=== PATIENT | male | born 1985 | race Caucasian/White ===

== ENCOUNTER → 2018-06-30 | Outpatient (CLI) | payer OTHER ==
--- NOTE | 2018-07-01 09:22 | US ---
EXAM DESCRIPTION: Breast,Bilateral: Ultrasound CLINICAL HISTORY: 30 [id number]. Mass behind the right nipple with tenderness. Recent onset. No history of trauma. No history of starting new medication. No prior problems with breasts. COMPARISON: Digital diagnostic tomosynthesis bilateral breast on this visit. TECHNIQUE: Transcutaneous scanning of the bilateral breasts utilizing cummings-scale and Doppler modes. Scanning performed by the paperhanger supervisor and Dr. Jerez. FINDINGS: Minimal amount of breast tissue visualized retroareolar breast bilaterally. Mostly fatty echotexture except as noted. Increased hypoechoic soft tissue in the retroareolar right breast. No definite mass. Increased vascularity. No distinct cyst. No large calcifications. No overlying skin changes. Probable inflammatory tissue or gynecomastia. IMPRESSION: 1. Bi-Rads Category 3: Probably Benign Findings. 2. Please refer to bilateral digital tomosynthesis diagnostic mammographic examination and report on this visit. The FINDINGS and the FOLLOW-UP plan were reviewed in person with the patient after the examination. Written communication explaining the IMPRESSION and FOLLOW-UP will be mailed to the patient and referring care provider. Electronically signed by: Cuco Jerez MD 07/01/2018 9:20 AM [facility]
--- NOTE | 2018-07-01 09:54 | MAM ---
EXAM DESCRIPTION: 3D Diagnostic, Bilateral: Digital Mammography CLINICAL HISTORY: 30 [id number] . Recent onset of tenderness and lump behind the right nipple.. COMPARISON: Targeted bilateral breast ultrasound included with this examination. No prior mammography. No prior reports available.. TECHNIQUE: Bilateral CC LM MLO projection full-field images, digital mammographic tomosynthesis technique. Bilateral 2-D digital full-field MLO images. CAD not utilized. FINDINGS: The breast parenchymal density pattern is: Scattered areas of fibroglandular density. No skin thickening or nipple retraction diffuse mass density or focal asymmetry in the retroareolar right breast. No abnormal calcifications. No skin thickening or nipple retraction. Bilateral axillary lymph nodes. Ultrasound: Minimal amount of breast tissue visualized retroareolar breast bilaterally. Mostly fatty echotexture except as noted. Increased hypoechoic soft tissue in the retroareolar right breast. No definite mass. Increased vascularity. No distinct cyst. No large calcifications. No overlying skin changes. Probable inflammatory tissue or gynecomastia. IMPRESSION: BI-RADS CATEGORY: 3 - PROBABLY BENIGN. Management: Short interval (6-month) follow-up targeted right breast ultrasound and continued surveillance diagnostic digital mammography, right breast. The FINDINGS and the FOLLOW-UP plan were reviewed in person with the patient after the examination. Written communication explaining the IMPRESSION and FOLLOW-UP will be mailed to the patient and referring care provider. Electronically signed by: Cuco Jerez MD 07/01/2018 9:52 AM CERTIFIED ADAPTIVE PHYSICAL EDUCATOR
== END ==
LOC: US 13:02
PROVIDERS: ATTEND Family Medicine
DX: N63.10 Unspecified lump in the right breast, unspecified quadrant (principal)
CPT/HCPCS: 76641; 77066; G0279

== ENCOUNTER 2019-04-22 05:58 | Emergency (ER) | payer OTHER ==
--- NOTE | 2019-04-22 06:17 | ED.PDOC ---
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 Has 3/10 left sided FORBES. Denies LOC, nausea, vomiting or vision changes. Does not take blood thinners or any medications regularly. Here for Worker's Comp eval. Allergies/Adverse Reactions: Allergies NO KNOWN ALLERGY Allergy (Unverified 06/01/13 14:50) Review of Systems - Review of Systems Constitutional: States: no symptoms reported EENTM: Denies: eye pain, blurred vision, ear pain, nose congestion, throat pain Respiratory: States: no symptoms reported Cardiology: States: no symptoms reported Gastrointestinal/Abdominal: States: no symptoms reported Musculoskeletal: States: no symptoms reported Neurological: States: headache. Denies: paresthesia, seizure All other Systems: Reviewed and Negative Physical Exam - Physical Exam General Appearance: Alert, Comfortable, No apparent distress, Well Developed Ears, Nose, Throat: other - PERRL, EOMI. No facial edema, erythema or tenderness Neck: non-tender, full range of motion, supple, other - No C, T, L spine tenderness Respiratory: chest non-tender, lungs clear, normal breath sounds, no respiratory distress Cardiovascular/Chest: regular rate, rhythm, no edema Gastrointestinal/Abdominal: non tender, soft Back Exam: normal inspection, no vertebral tenderness Extremity: normal range of motion, non-tender, normal inspection Neurologic: plan rep II-XII nml as tested, no motor/sensory deficits, alert, normal mood/affect, oriented x 3 Skin Exam: normal color Progress - Progress Progress: 04/22/19 06:19 Pt was hit in left side of head by case of beer. No LOC. No deficits on neuro exam at this time. CHI precautions given. Will take Tyl/Motrin as needed for pain and f/u with PCP or worker's comp physician in 1-2 days for recheck. Departure - Departure Clinical Impression: Head injury Qualifiers: Encounter type: initial encounter Qualified Code(s): S09.90XA - Unspecified injury of head, initial encounter Concussion Qualifiers: Encounter type: initial encounter Loss of consciousness presence/duration: without LOC Qualified Code(s): S06.0X0A - Concussion without loss of consciousness, initial encounter Time of Disposition: 06:26 Disposition: Discharge to Home or Self Care Condition: Good Departure Forms: ED Discharge - Pt. Copy, Patient Portal Self Enrollment Instructions: Closed Head Injury (DC) Diet: resume usual diet Activity: increase activity as tolerated Referrals: FER GREGORY MD [Primary Care Provider] - 1-2 Days
[2019-04-22 06:23] VITALS: TEMP 97; O2SAT 98
[2019-04-22 06:48] VITALS: BP 109/74
== END 2019-04-22 06:48 | disposition home or self-care (01) ==
LOC: ER 05:58
DX: S06.0X0A Concussion without loss of consciousness, initial encounter (principal); W20.8XXA Other cause of strike by thrown, projected or falling object, initial encounter; Y99.0 Civilian activity done for income or pay; Y92.69 Other specified industrial and construction area as the place of occurrence of the external cause

== ENCOUNTER → 2019-05-02 | Outpatient (CLI) | payer BC | LOC: GMAF 16:53 | PROVIDERS: ATTEND Nurse Practitioner Family | DX: Z20.2 Contact with and (suspected) exposure to infections with a predominantly sexual mode of transmission (principal) ==

== ENCOUNTER 2019-08-07 20:28 | Emergency (ER) | payer BC ==
[2019-08-07] MEDS ORDERED: SODIUM CHLORIDE 0.9% (FLUSH) 10 ML SYG IV PRN (20:34)
[2019-08-07] MEDS ORDERED: SODIUM CHLORIDE 0.9% 1000ML 1,000 ML IVS ONE ×2 (20:34→20:45)
--- NOTE | 2019-08-07 20:35 | ED.PDOC ---
History of Present Illness - General Time Seen by Provider: 08/07/19 20:34 Source: patient - History of Present Illness Initial Comments: 34 yo male who presents with cc of lightheadedness. 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 Reports he had just eaten some tacos then he stood up and was walking to the restroom when he suddenly felt lightheaded like he might pass out. He went outside and lied down and had nausea with 1 episode of NBNB emesis. Sx's seem to be improving with rest, slightly worse with activity. Now feeling much better but still slightly dizzy. Reports hx of similar sx's in the past but not as severe. Denies any chest pain, palpitations, dyspnea, abd pain, diarrhea, sore throat, fevers, chills. Had a concussion 2 months ago but denies any headaches, seems to have recovered from it. Also complains of rash to hands, feet, abdomen, and genital region. Onset 2-3 weeks ago. Was seen at that time in clinic and diagnosed with scabies and Rx'd Permethrin cream. Applied with resolution of rash but has now recurred. Allergies/Adverse Reactions: Allergies NO KNOWN ALLERGY Allergy (Verified 04/22/19 06:21) Home Medications: Ambulatory Orders RX: Permethrin [Elimite] 1 applic EX ONCE 1 Days #60 gm 08/07/19 Review of Systems - Review of Systems Review of Systems: 08/07/19 20:49 as per HPI All other Systems: Reviewed and Negative Past Medical History (General) - Patient Medical History Hx Stroke: No Hx of COPD: No Hx Cardiac Disorders: No Hx Congestive Heart Failure: Yes Hx Hypertension: No Hx Diabetes: No Hx Cancer: No - Vaccination History Hx Tetanus, Diphtheria Vaccination: No Hx Influenza Vaccination: No Hx Pneumococcal Vaccination: No - Social History Hx Tobacco Use: No Hx Alcohol Use: No Hx Substance Use: No Hx Substance Use Treatment: No Hx Depression: No - Female History Patient : No Family Medical History - Family History Mother Hx Family Diabetes: Yes Hx Family Cancer: Yes Physical Exam - Physical Exam General Appearance: Alert, No apparent distress Eye Exam: bilateral normal Ears, Nose, Throat: hearing grossly normal, normal ENT inspection, normal pharynx Neck: non-tender, full range of motion, supple, normal inspection Respiratory: chest non-tender, lungs clear, normal breath sounds, no respiratory distress, no accessory muscle use Cardiovascular/Chest: normal peripheral pulses, regular rate, rhythm, no edema, no gallop, no JVD, no murmur Peripheral Pulses: radial,right: 2+, radial,left: 2+ Gastrointestinal/Abdominal: non tender, soft, no organomegaly, no pulsatile mass Back Exam: normal inspection, no CVA tenderness Extremity: normal range of motion, non-tender, normal inspection, no pedal edema, no calf tenderness Neurologic: computer application developer II-XII nml as tested, no motor/sensory deficits, alert, normal mood/affect, oriented x 3 Skin Exam: normal color, warm/dry, rash - scattered fine erythematous papular lesions to hands, between digits, lower abdomen, and genital region - appears c/w scabies Progress - Progress Progress: 08/07/19 20:50 Near syncope -consider anxiety, vertigo, dehydration, electrolyte derangement, orthostatic, vasovagal. Consider also arrhythmia, other -obtain bloodwork, EKG, CXR, UA -place PIV, 1 L NS bolus, Zofran 4 mg IV Rash -appears c/w scabies. Discussed will need to treat the entire home and his pet cat. Will give another Rx of Permethrin cream as well. 08/08/19 22:50 -Labs reveal mild hypokalemia (replenished PO) but otherwise unremarkable. Pt has remained stable with no recurrence of sx's in ED. Feeling much better. -unsure of etiology of acute episode but does not appear emergent. Will dc home in good condition, advised close PCP f/u and return warnings discussed. Elmer Hill MD Billing #[id number] 08/07/19 20:34 IV Care:Saline Lock per Protoc QSHIFT Telemetry .ONCE EKG Assessment ONCE Pulse Oximetry Assessment DAILY 08/07/19 20:45 EKG STAT Laboratory Results - last 24 hr 08/07/19 08/07/19 08/07/19 20:47 20:47 20:47 WBC 5.2 RBC 4.80 Hgb 14.6 Hct 42.8 MCV 89.1 MCH 30.4 MCHC 34.1 RDW 12.9 Plt Count 195 MPV 8.0 Absolute Neuts (auto) 2.90 Absolute Lymphs (auto) 1.60 Absolute Monos (auto) 0.40 Absolute Eos (auto) 0.20 Absolute Basos (auto) 0.00 Neutrophils % 56.6 Lymphocytes % 31.2 Monocytes % 7.9 Eosinophils % 3.6 Basophils % 0.7 Sodium 143 Potassium 3.2 L Chloride 102 Carbon Dioxide 31 Anion Gap 13.2 BUN 14 Creatinine 0.89 BUN/Creatinine Ratio 15.7 POC Glucose 75 Random Glucose 87 Serum Osmolality 284.8 Calcium 9.3 Total Bilirubin 0.7 AST 28 ALT 20 Alkaline Phosphatase 71 Serum Total Protein 6.7 Albumin 3.9 Globulin 2.8 Albumin/Globulin Ratio 1.4 - EKG/XRAY/CT EKG: Sinus - NSR, HR 60, no ST elevations or q waves, axis & intervals normal, no prior EKGs for comparison XRAY: chest - no acute processes per my read Departure - Departure Clinical Impression: Near syncope, Scabies Time of Disposition: 22:22 Disposition: Discharge to Home or Self Care Condition: Good Departure Forms: ED Discharge - Pt. Copy, Patient Portal Self Enrollment Instructions: Scabies (DC), Near Fainting (DC) Diet: resume usual diet Referrals: FER GREGORY MD [Primary Care Provider] - 1-2 Weeks Prescriptions: RX: Permethrin [Elimite] 1 applic EX ONCE 1 Days #60 gm Home Medications: Ambulatory Orders RX: Permethrin [Elimite] 1 applic EX ONCE 1 Days #60 gm 08/07/19 Additional Instructions: Thoroughly massage cream (30 g for average adult) from head to soles of feet; leave on for 8 to 14 hours before removing (shower or bath). Return if concerning symptoms develop such as chest pain, shortness of breath, loss of consciousness, etc... Follow up closely with your PCP.
[2019-08-07] MEDS ORDERED: ONDANSETRON INJ 4 MG/2 ML VIAL IV ONE (20:45)
--- NOTE | 2019-08-07 21:19 | RAD ---
EXAM DESCRIPTION: Chest,1 View CLINICAL HISTORY: 34 years Male near-syncope COMPARISON: None TECHNIQUE: AP view of the chest was obtained. FINDINGS: Cardiac silhouette is prominent in size. Central vessels are not increased. No infiltrates or effusions seen. Prominent infrahilar vessels bilaterally. No consolidation. No pneumothorax. IMPRESSION: No active disease. Electronically signed by: Rose Barth MD 08/07/2019 9:17 PM CDT
[2019-08-07] MEDS ORDERED: POTASSIUM CHLORIDE 20 MEQ TAB PO ONE (22:22)
[2019-08-07 22:49] VITALS: BP 109/69; TEMP 98.2; O2SAT 98
== END 2019-08-07 22:48 | disposition home or self-care (01) ==
LOC: ER 20:28
DX: R55 Syncope and collapse (principal); B86 Scabies; I50.9 Heart failure, unspecified
CPT/HCPCS: 36415; 71045; 80053; 82948; 85025; 93005; J2405; J7030

== ENCOUNTER 2019-08-27 21:01 | Emergency (ER) | payer BC ==
--- NOTE | 2019-08-27 21:08 | ED.PDOC ---
History of Present Illness - General Chief Complaint: Lower Extremity Injury Time Seen by Provider: 08/27/19 21:07 Source: patient - History of Present Illness Initial Comments: 34 yo male who presents from work with cc of left lower leg pain following injury just [place]. 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 Reports hearing a cracking sound and immediate sharp/throbbing pain to the area - now constant, 9/10 severity, radiates to behind the knee, worse with palpation/WB/walking, nothing taken for relief. Unable to WB or walk due to pain. Denies any weakness, numbness. Mild swelling to area and abrasion. Unsure of date of last tetanus imm. Allergies/Adverse Reactions: Allergies NO KNOWN ALLERGY Allergy (Verified 04/22/19 06:21) Home Medications: Ambulatory Orders NK 08/27/19 Review of Systems - Review of Systems Review of Systems: 08/27/19 21:17 as per HPI All other Systems: Reviewed and Negative Past Medical History (General) - Patient Medical History Hx Stroke: No Hx of COPD: No Hx Cardiac Disorders: No Hx Congestive Heart Failure: Yes Hx Hypertension: No Hx Diabetes: No Hx Cancer: No - Vaccination History Hx Tetanus, Diphtheria Vaccination: No Hx Influenza Vaccination: No Hx Pneumococcal Vaccination: No - Social History Hx Tobacco Use: No Hx Alcohol Use: No Hx Substance Use: No Hx Substance Use Treatment: No Hx Depression: No - Female History Patient : No Family Medical History - Family History Mother Hx Family Diabetes: Yes Hx Family Cancer: Yes Physical Exam - Physical Exam General Appearance: Alert, Comfortable, No apparent distress Eyes, Ears, Nose, Throat: PERRL/EOMI, normal ENT inspection Neck: non-tender, full range of motion, supple, normal inspection Cardiovascular/Respiratory: regular rate, rhythm, no M/R/G, normal peripheral pulses, no JVD, normal breath sounds, no respiratory distress Gastrointestinal/Abdominal: non-tender, no organomegaly Back: normal inspection Thigh/Hip: normal inspection, non-tender, no evidence of injury, normal ROM Leg: other - to left upper anterior tibial region there is approx 2x3 cm abrasion and mild swelling without deformity noted, moderate ttp to the area Knee: other - Left knee appears normal on inspection. ROM limited from approx 0 to 30 deg flexion due to pain Ankle: normal inspection, non-tender, no evidence of injury, normal ROM Foot: normal inspection, non-tender, no evidence of injury, normal ROM Neuro/Tendon: normal sensation, normal motor functions, normal tendon functions Mental Status: alert, oriented x 3 Skin: normal color, warm/dry Progress - Progress Progress: 08/27/19 21:19 Left lower leg pain -consider frx, contusion, strain/sprain, other -obtain XR L tib/fib & knee -cold pack & ibuprofen 800 mg for pain -update tetanus imm 08/27/19 22:18 -XR Left tib/fib and L knee show no acute processes per my read. -discussed dx of Left lower leg contusion as well as expected course and home treatment -dc home in good condition Elmer Hill MD Billing #[id number] Departure - Departure Clinical Impression: Contusion of left lower leg, initial encounter Time of Disposition: 22:16 Disposition: Discharge to Home or Self Care Condition: Good Departure Forms: ED Discharge - Pt. Copy, Patient Portal Self Enrollment Instructions: Contusion (DC) Diet: regular diet Activity: increase activity as tolerated Referrals: FER GREGORY MD [Primary Care Provider] - 1-2 Weeks Home Medications: Ambulatory Orders NK 08/27/19 Additional Instructions: Apply a cold pack for 15-20 minutes every 1-2 hours for next 2-3 days and keep the leg elevated often to help prevent pain & swelling. You may also take ibuprofen 600 mg every 6 hours and Tylenol 650 mg every 6 hours as needed for pain. Return to weight bearing and walking as tolerated.
[2019-08-27] MEDS ORDERED: IBUPROFEN 200 MG TAB PO ONE (21:13)
[2019-08-27] MEDS ORDERED: IBUPROFEN 200 MG TAB ONE (21:15)
[2019-08-27] MEDS ORDERED: TETANUS,DIPHTHERIA,PERTUSSIS 1 EA SYG IM ONE ×2 (21:17→21:18)
[2019-08-27 21:35] VITALS: TEMP 97.1
--- NOTE | 2019-08-27 22:05 | RAD ---
EXAM DESCRIPTION: Knee,Left Complete (accession [id number]), Tibia/Fibula,Left (accession [id number]) CLINICAL HISTORY: 34 years Male, fall, left inferior knee injury pain COMPARISON: None. FINDINGS: No evidence of an acute fracture of the left knee or left tibia/fibula. No dislocation. Surrounding soft tissues are unremarkable. IMPRESSION: No evidence of an acute fracture of the left knee or left tibia/fibula. Electronically signed by: Ramu Hicks MD 08/27/2019 10:03 PM CDT
--- NOTE | 2019-08-27 22:05 | RAD ---
EXAM DESCRIPTION: Knee,Left Complete (accession [id number]), Tibia/Fibula,Left (accession [id number]) CLINICAL HISTORY: 34 years Male, fall, left inferior knee injury pain COMPARISON: None. FINDINGS: No evidence of an acute fracture of the left knee or left tibia/fibula. No dislocation. Surrounding soft tissues are unremarkable. IMPRESSION: No evidence of an acute fracture of the left knee or left tibia/fibula. Electronically signed by: Ramu Hicks MD 08/27/2019 10:03 PM CDT
[2019-08-27 22:45] VITALS: BP 108/55; O2SAT 96
== END 2019-08-27 22:35 | disposition home or self-care (01) ==
LOC: ER 21:01
DX: S80.12XA Contusion of left lower leg, initial encounter (principal); I50.9 Heart failure, unspecified; W17.2XXA Fall into hole, initial encounter; Y99.0 Civilian activity done for income or pay; Y92.69 Other specified industrial and construction area as the place of occurrence of the external cause; Z23 Encounter for immunization

== ENCOUNTER 2020-07-13 09:20 | Emergency (ER) | payer SELFPAY ==
--- NOTE | 2020-07-13 09:26 | ED.PDOC ---
History of Present Illness - General Chief Complaint: Chest Pain/NM Stated Complaint: Chest pain Time Seen by Provider: 07/13/20 09:24 Source: patient Exam Limitations: no limitations - History of Present Illness Initial Comments: This is a 34-year-old male with history of pectus excavatum presenting to the emergency department with left anterior chest wall pain. He localizes the pain with 1 finger to the left inframammary area, stating the pain worsens with deep breaths and movements. Pain began suddenly while at work, no inciting injury or trauma. No previous history of DVT/PE, no blood thinners, no leg swelling, no recent surgeries or traveling. He denies any shortness of breath. He did have a Covid contact 3 weeks ago, was subsequently tested negative, and completed a quarantine without development of symptoms. he denies any recent fevers. Allergies/Adverse Reactions: Allergies NO KNOWN ALLERGY Allergy (Verified 04/22/19 06:21) Home Medications: Ambulatory Orders Ibuprofen [Motrin] 400 mg PO Q6HR PRN #20 tab 07/13/20 Methocarbamol [Robaxin] 750 - 1,500 mg PO Q6H PRN #20 tab 07/13/20 Review of Systems - Review of Systems Constitutional: Denies: chills, fever EENTM: Denies: eye pain, ear discharge, nose pain, nose congestion, throat pain, mouth pain Respiratory: Denies: cough, short of breath, wheezing Cardiology: States: chest pain. Denies: edema, syncope Gastrointestinal/Abdominal: Denies: abdominal pain, diarrhea, nausea, vomiting Genitourinary: Denies: dysuria, hematuria, pain Musculoskeletal: Denies: back pain, joint pain, joint swelling, muscle pain, muscle stiffness Skin: Denies: lesions, rash Neurological: Denies: headache, paresthesia, weakness Endocrine: States: no symptoms reported Past Medical History (General) - Patient Medical History Hx Seizures: No Hx Stroke: No Hx Dementia: No Hx Asthma: No Hx of COPD: No Hx Cardiac Disorders: No Hx Congestive Heart Failure: Yes Hx Pacemaker: No Hx Hypertension: No Hx Thyroid Disease: No Hx Diabetes: No Hx Gastroesophageal Reflux: No Hx Renal Disease: No Hx Cancer: No Hx of HIV: No Hx Hepatitis C: No Hx MRSA: No - Vaccination History Hx Tetanus, Diphtheria Vaccination: No Hx Influenza Vaccination: No Hx Pneumococcal Vaccination: No - Social History Hx Tobacco Use: No Hx Chewing Tobacco Use: No Hx Alcohol Use: No Hx Substance Use: No Hx Substance Use Treatment: No Hx Depression: No Hx Physical Abuse: No Hx Emotional Abuse: No Hx Suspected Abuse: No - Female History Patient : No Family Medical History - Family History Mother Family History: No Known Hx Family Diabetes: Yes Hx Family Cancer: Yes Physical Exam - Physical Exam General Appearance: Alert, Comfortable Eyes, Ears, Nose, Throat Exam: PERRL/EOMI, normal ENT inspection Neck: full range of motion, supple Respiratory: lungs clear, normal breath sounds, no respiratory distress, other - Reproducible left inframammary anterior chest wall tenderness that exactly reproduces his pain Cardiovascular/Chest: normal peripheral pulses, regular rate, rhythm, no edema, no gallop, no JVD Gastrointestinal/Abdominal: non tender, soft Extremity: normal range of motion, non-tender, no pedal edema Neurologic: no motor/sensory deficits, alert, normal mood/affect Skin Exam: normal color, warm/dry Progress - Progress Progress: 07/13/20 10:23 Rechecked. Discussed x-ray/EKG findings. Pain improving with NSAIDs. Will discharge home with NSAIDs and Robaxin. Recommended follow-up with PCP in 3 to 5 days for recheck. Strict warnings given to return the emergency room for worsening pain, shortness of breath, fever, syncope, leg swelling, or new concerns. DDx: Chest wall pain, low suspicion for PE, pneumothorax, pneumonia Patient presenting with reproducible chest wall pain and tenderness on exam. Localizes pain with 1 finger to the left anterior inframammary chest wall, this exactly reproduces pain on exam. No calf tenderness, no PE risk factors. Patient is PERC negative, PE ruled out. EKG shows right axis, although this is likely related to his pectus excavatum deformity. His chest x-ray shows no acute process. I do not feel cardiac work-up is indicated given exam and history that are highly suggestive of chest wall pain. Will discharge home with NSAIDs and Robaxin. Strict warnings given to return for worsening. Guanakito Reilly DO [facility] #[id number] - Results/Orders Results/Orders: EKG reviewed personally by me at 9:30 AM. Sinus rhythm, rate of 63, right axis, normal intervals, no ST segment elevations or depressions. 2 view chest x-ray reviewed personally by me at 10:20 AM. He has a pectus excavatum deformity, no infiltrates, no pneumothorax Departure - Departure Clinical Impression: Acute chest wall pain Disposition: Discharge to Home or Self Care Condition: Good Departure Forms: ED Discharge - Pt. Copy, Patient Portal Self Enrollment Instructions: DI for Chest Pain, Costochondritis (DC) Diet: resume usual diet Activity: increase activity as tolerated Referrals: FER GREGORY MD [Primary Care Provider] - 1-5 Days Prescriptions: Ibuprofen [Motrin] 400 mg PO Q6HR PRN #20 tab PRN Reason: Pain Methocarbamol [Robaxin] 750 - 1,500 mg PO Q6H PRN #20 tab PRN Reason: Muscle Spasms Home Medications: Ambulatory Orders Ibuprofen [Motrin] 400 mg PO Q6HR PRN #20 tab 07/13/20 Methocarbamol [Robaxin] 750 - 1,500 mg PO Q6H PRN #20 tab 07/13/20
[2020-07-13] MEDS ORDERED: KETOROLAC TROMETHAMINE INJ 30 MG/ML VIAL IV ONE (09:37)
--- NOTE | 2020-07-13 10:25 | RAD ---
EXAMINATION: Chest,2 Views. HISTORY: 34 years Male. chest wall pain. . . TECHNIQUE: XR CHEST 2 VIEWS COMPARISON: 08/07/2019 FINDINGS: Posterior position of the distal sternum on the lateral view suggests pectus excavatum. This appears corroborated by increased hilar and infrahilar vascular/interstitial prominence on the frontal view along with partial obscuration of the right cardiac margin. Cardiac silhouette size is normal. No evidence of vascular congestion. There is no pulmonary consolidation. No radiographically visible pneumothorax. No definite evidence of pleural effusion. No visible acute displaced fracture in the regional skeleton. IMPRESSION: No acute cardiopulmonary disease in the visualized chest. Findings compatible with pectus excavatum Electronically signed by: Oziel Amado MD 07/13/2020 10:24 AM [facility]
[2020-07-13 10:50] VITALS: BP 110/67; TEMP 98.1; O2SAT 98
== END 2020-07-13 10:35 | disposition home or self-care (01) ==
LOC: ER 09:20
DX: R07.89 Other chest pain (principal); I50.9 Heart failure, unspecified
CPT/HCPCS: 71046; 93005; J1885